=== PATIENT | female | born 1975 | race Hispanic/Latino ===

== ENCOUNTER 2021-05-26 17:38 | Inpatient (IN) | payer OTHER ==
[~2021-05-26] VITALS: Ht 152.4 cm; Wt 90.7 kg
[2021-05-26 18:01] LABS: BASOPHILS % (AUTO) 0.4 % (0.0-5.0); EOSINOPHILS % (AUTO) 1.6 % (0.0-8.0); HEMATOCRIT 31.7 % (36-48); LYMPHOCYTES % (AUTO) 35.7 % (21.0-51.0); MEAN CORPUSCULAR HEMOGLOBIN 19.1 pg (27.0-33.0); MEAN CORPUSCULAR HGB CONC 28.4 g/dL (32.0-36.0); MEAN CORPUSCULAR VOLUME 67.2 fL (79-99); MONOCYTES % (AUTO) 8.2 % (3.0-13.0); NEUTROPHILS % (AUTO) 53.7 % (40.0-77.0); PLATELET COUNT (AUTO) 352 K/uL (130-400); RED BLOOD CELL COUNT(AUTO) 4.72 MIL/uL (4.00-5.50); RED CELL DISTRIBUTION WIDTH 19.4 % (11.0-15.5); WHITE BLOOD COUNT (AUTO) 7.4 K/uL (4.8-10.8)
[2021-05-26 18:07] LABS: APPEARANCE,URINE Clear (CLEAR); BILIRUBIN,URINE Negative (NEGATIVE); COLOR,URINE Yellow (YELLOW); GLUCOSE, URINE (UA) Negative (NEGATIVE); KETONES,URINE Negative (NEGATIVE); LEUKOCYTE ESTERASE ,URINE Negative (NEGATIVE); NITRATE,URINE Negative (NEGATIVE); OCCULT BLOOD,URINE Negative (NEGATIVE); PROTEIN,URINE Negative (NEGATIVE)
[2021-05-26 18:09] LABS: HCG,QUAL RESULT NEGATIVE (NEGATIVE)
[2021-05-26 18:15] LABS: AMPHET/METH SCREEN,URINE NEGATIVE (NEGATIVE); BARBITURATE SCREEN, URINE NEGATIVE (NEGATIVE); BENZODIAZEPINES SCREEN,URINE NEGATIVE (NEGATIVE); CANNABINOID SCREEN,URINE NEGATIVE (NEGATIVE); COCAINE SCREEN,URINE NEGATIVE (NEGATIVE); OPIATE SCREEN,URINE NEGATIVE (NEGATIVE); PHENCYCLIDINE SCREEN,URINE NEGATIVE (NEGATIVE)
[2021-05-26 18:16] LABS: CREATININE 0.6 mg/dL (0.5-1.5); POTASSIUM 3.5 mmol/L (3.5-5.1)
[2021-05-26 18:20] LABS: ALBUMIN 3.8 g/dL (3.5-5.0); BILIRUBIN,TOTAL 0.2 mg/dL (0.2-1.0); TOTAL PROTEIN, SERUM 7.9 g/dL (6.0-8.3)
[2021-05-26] MEDS ORDERED: ONDANSETRON 4MG INJ ONE (21:27)
[2021-05-26] MEDS ORDERED: HYDROMORPHONE 1 MG INJ ONE (21:28)
[2021-05-26] MEDS ORDERED: ONDANSETRON 4MG INJ IVP ONE (21:30)
[2021-05-26] MEDS ORDERED: HYDROMORPHONE 1 MG INJ IVP ONE (21:30)
[2021-05-26] MEDS ORDERED: IOHEXOL 350 MG/ML 100ML INFUS..BTL IV ONE (22:02)
[2021-05-27] VITALS (7 sets, daily range): BP systolic 112–139; BP diastolic 64–89
[2021-05-27] MEDS ORDERED: ACETAMINOPHEN WITH CODEINE 1 TAB TAB ONE (01:18)
[2021-05-27] MEDS ORDERED: DEXTROSE 5%-LACTATED RINGERS 1,000 ML IV ONE (01:19)
[2021-05-27] MEDS ORDERED: DEXTROSE 5%-LACTATED RINGERS 1,000 ML IV SCH (01:30)
[2021-05-27] MEDS ORDERED: ACETAMINOPHEN WITH CODEINE 1 TAB TAB PO PRN (01:30)
[2021-05-27] MEDS: ACETAMINOPHEN WITH CODEINE 1 TAB TAB PO PRN ×2 (10:41→16:21)
[2021-05-28 03:29] VITALS: BP 117/72
[2021-05-28] MEDS: ACETAMINOPHEN WITH CODEINE 1 TAB TAB PO PRN ×5 (05:56→23:52)
[2021-05-28 07:40] VITALS: BP 137/83
[2021-05-28 11:33] VITALS: BP 134/75
[2021-05-28 16:06] VITALS: BP 112/60
[2021-05-28 19:21] VITALS: BP 116/75
[2021-05-28 23:53] VITALS: BP 106/51
[2021-05-29] MEDS: ACETAMINOPHEN WITH CODEINE 1 TAB TAB PO PRN ×4 (03:55→19:38)
[2021-05-29 03:56] VITALS: BP 131/72
[2021-05-29] MEDS ORDERED: CEFAZOLIN 3GM /D5W 100ML 100 ML IV PRN (08:00)
[2021-05-29 08:10] VITALS: BP 127/61
[2021-05-29 11:51] VITALS: BP 116/76
[2021-05-29] MEDS ORDERED: PEG 3350/NA SULF,BICARB,CL/KCL 4000 ML SOLN PO ONE (12:00)
[2021-05-29 15:59] VITALS: BP 121/69
[2021-05-29 19:22] VITALS: BP 132/81
[2021-05-29] MEDS: LACTATED RINGERS 1000ML 1,000 ML IV SCH (20:15)
[2021-05-29 23:00] VITALS: BP 120/67
[2021-05-29] MEDS ORDERED: MEPERIDINE-PF 50 MG/ML SYG IM PRN (23:00)
[2021-05-29] MEDS ORDERED: PROMETHAZINE HCL 25 MG/ML 1ML AMPULE IM PRN (23:00)
[2021-05-30] VITALS (20 sets, daily range): BP systolic 110–131; BP diastolic 56–77
[2021-05-30] MEDS ORDERED: DEXAMETHASONE SOD PHOSPHATE 10MG/ML 1ML VIAL ONE (07:45)
[2021-05-30] MEDS ORDERED: SUCCINYLCHOLINE 200MG/10ML SYR ONE (07:45)
[2021-05-30] MEDS ORDERED: LIDOCAINE PF 100MG/5ML (2%) SYRINGE 5ML ONE (07:45)
[2021-05-30] MEDS ORDERED: NEOSTIGMINE 5MG/5ML SYR IV ONE (07:46)
[2021-05-30] MEDS ORDERED: PROPOFOL 10 MG/ML 20ML VIAL IV ONE (07:46)
[2021-05-30] MEDS ORDERED: MIDAZOLAM HCL 1 MG/ML 2ML VIAL ONE ×3 (07:46→08:03)
[2021-05-30] MEDS ORDERED: GLYCOPYRROLATE 1 MG/5 ML SYRINGE ONE (07:46)
[2021-05-30] MEDS ORDERED: ONDANSETRON 4MG INJ ONE (07:46)
[2021-05-30] MEDS ORDERED: FENTANYL CITRATE PF 50 MCG/1 ML 2ML VIAL ONE ×2 (07:47→10:31)
[2021-05-30] MEDS ORDERED: ROCURONIUM 10MG/1ML SYR 10 MG/ML ML ONE ×2 (07:47→08:53)
[2021-05-30] MEDS ORDERED: PHENYLEPHRINE HCL 10 MG/ML 1ML VIAL IV ONE (08:30)
[2021-05-30] MEDS ORDERED: FENTANYL CITRATE PF 50 MCG/1 ML 5ML AMP IV ONE (08:33)
[2021-05-30] MEDS: LACTATED RINGERS 1000ML 1,000 ML IV SCH ×2 (09:20→10:37)
[2021-05-30] MEDS ORDERED: MORPHINE 4 MG SYG ONE ×2 (10:04→10:07)
[2021-05-30] MEDS ORDERED: MEPERIDINE-PF 25 MG/ML SYG ONE ×2 (10:12→10:19)
[2021-05-30] MEDS ORDERED: LIDOCAINE HCL MPF 1% 5ML VIAL ONE (10:17)
[2021-05-30] MEDS ORDERED: BISACODYL 10 MG SUPP.RECT RC PRN (10:30)
[2021-05-30] MEDS ORDERED: PROMETHAZINE HCL 25 MG/ML 1ML AMPULE IM PRN (10:30)
[2021-05-30] MEDS: PROMETHAZINE HCL 25 MG/ML 1ML AMPULE IM PRN ×3 (11:43→19:39)
[2021-05-30] MEDS: DEXTROSE 5 %-0.45 % NACL 1,000 ML IV PRN ×2 (11:44→19:21)
[2021-05-30] MEDS: MEPERIDINE-PF 75 MG/ML SYG IM PRN ×3 (11:44→19:40)
[2021-05-30] MEDS: IBUPROFEN 600 MG TABLET PO PRN (13:30)
[2021-05-30] MEDS: SIMETHICONE 80 MG TAB.CHEW PO PRN (21:25)
[2021-05-30] MEDS: DOCUSATE SODIUM 100 MG CAP PO PRN (21:25)
[2021-05-31 03:24] VITALS: BP 125/70
[2021-05-31] MEDS: DEXTROSE 5 %-0.45 % NACL 1,000 ML IV PRN (03:30)
[2021-05-31] MEDS: ACETAMINOPHEN WITH CODEINE 1 TAB TAB PO PRN ×2 (03:34→08:45)
[2021-05-31] MEDS: IBUPROFEN 600 MG TABLET PO PRN (07:06)
[2021-05-31 07:07] LABS: HEMATOCRIT 28.4 % (36-48); MEAN CORPUSCULAR HEMOGLOBIN 19.6 pg (27.0-33.0); MEAN CORPUSCULAR HGB CONC 28.5 g/dL (32.0-36.0); MEAN CORPUSCULAR VOLUME 68.8 fL (79-99); RED BLOOD CELL COUNT(AUTO) 4.13 MIL/uL (4.00-5.50); WHITE BLOOD COUNT (AUTO) 11.5 K/uL (4.8-10.8)
[2021-05-31 07:08] VITALS: BP 107/69
[2021-05-31] MEDS: DOCUSATE SODIUM 100 MG CAP PO PRN ×2 (08:44→21:08)
[2021-05-31] MEDS: SIMETHICONE 80 MG TAB.CHEW PO PRN ×2 (08:44→21:08)
[2021-05-31 11:00] VITALS: BP 107/53
[2021-05-31] MEDS ORDERED: HYDROCODONE/ACETAMINOPHEN 5/325 MG TAB PO PRN (14:00)
[2021-05-31] MEDS ORDERED: BISACODYL 10 MG SUPP.RECT RC PRN (14:00)
[2021-05-31] MEDS ORDERED: ACETAMINOPHEN WITH CODEINE 1 TAB TAB PO PRN (14:00)
[2021-05-31] MEDS: IBUPROFEN 800 MG TAB PO PRN (14:09)
[2021-05-31 16:08] VITALS: BP 105/63
[2021-05-31 19:35] VITALS: BP 95/47
[2021-05-31 23:24] VITALS: BP 111/65
[2021-06-01] MEDS: IBUPROFEN 800 MG TAB PO PRN ×2 (03:30→10:36)
[2021-06-01 03:37] VITALS: BP 115/64
[2021-06-01 07:10] VITALS: BP 123/72
[2021-06-01] MEDS: SIMETHICONE 80 MG TAB.CHEW PO PRN (08:31)
[2021-06-01] MEDS: DOCUSATE SODIUM 100 MG CAP PO PRN (08:32)
[2021-06-01] MEDS ORDERED: ACET1TAB25 PO (10:24)
[2021-06-01] MEDS ORDERED: FERR325T22 PO (10:25)
== END 2021-06-01 11:10 | disposition home or self-care (01) | DRG 743 ==
LOC: EDH 17:38 → EDHIP 17:39 → OBSVTOIN 17:39 → WSH 05-27 02:47
PROVIDERS: ADMIT Specialist; ATTEND Specialist
PROC: 0UB60ZZ Excision of Left Fallopian Tube, Open Approach (ICD-10-PCS; principal; 2021-05-30 08:33)
PROC: 0UB10ZZ Excision of Left Ovary, Open Approach (ICD-10-PCS; 2021-05-30 08:33)
DX: D27.1 Benign neoplasm of left ovary (principal); R19.00 Intra-abdominal and pelvic swelling, mass and lump, unspecified site; Z20.822 Contact with and (suspected) exposure to COVID-19; Z98.84 Bariatric surgery status
CPT/HCPCS: 36415; 74177; 80053; 80305; 81003; 81025; 82150; 83690; 85025; 85027; 86304; 86850; 86870; 86900; 86901; 86905; 86922; 87635; A4344; G0378; J0330; J1100; J1170; J2001; J2175; J2250; J2270; J2370; J2405; J2550; J2704; J2710; J3010; J3490; J7040; J7120; Q9967